=== PATIENT | male | born 2000 | race African-American/Black ===

== ENCOUNTER 2020-01-08 12:55 | Emergency (ER) | payer MEDICAID, OTHER ==
[~2020-01-08] VITALS: Ht 172.7 cm; Wt 68.0 kg
[2020-01-08] MEDS ORDERED: BACITRACIN ZINC OINT UDPKT TOP ONE (15:30)
[2020-01-08] MEDS ORDERED: TETANUS, DIPHTHERIA, PERTUSSIS VAC/PF 0.5ML (>7YR OLD) IM ONE (15:30)
[2020-01-08] MEDS ORDERED: AMOXICILLIN/POTASSIUM CLAVULANATE 875/125MG TAB PO ONE (15:30)
[2020-01-08] MEDS ORDERED: LIDOCAINE 1%/EPI 1:100,000 10 ML VIAL IJ ONE (15:30)
[2020-01-08] MEDS ORDERED: IBUPROFEN 600MG TABLET PO ONE (15:30)
[2020-01-08 15:56] VITALS: BP 152/94
[2020-01-08] MEDS ORDERED: LIDOCAINE HCL/EPINEPHRINE 1%-EPI 1:100,000 20 ML VIAL INFIL NR (16:00)
== END 2020-01-08 16:02 | disposition home or self-care (01) ==
LOC: ER 12:55
DX: S71.151A Open bite, right thigh, initial encounter (principal); W54.0XXA Bitten by dog, initial encounter; Y93.89 Activity, other specified; Y92.89 Other specified places as the place of occurrence of the external cause; Y99.8 Other external cause status; F12.10 Cannabis abuse, uncomplicated; J45.909 Unspecified asthma, uncomplicated
CPT/HCPCS: 90715; 99283; J3490

== ENCOUNTER 2020-09-14 22:56 | Emergency (ER) | payer SELFPAY ==
[~2020-09-14] VITALS: Ht 152.4 cm; Wt 64.0 kg
[2020-09-14] MEDS ORDERED: MORPHINE SULFATE 4 MG/ML CPJ (NOT FOR IM USE) IV STA (23:03)
[2020-09-14] MEDS ORDERED: ONDANSETRON HCL 4MG/2ML INJ IV STA (23:03)
[2020-09-14] MEDS ORDERED: SODIUM CHLORIDE 0.9% 1,000 ML IV ONE (23:15)
[2020-09-14] MEDS ORDERED: TETANUS, DIPHTHERIA, PERTUSSIS VAC/PF 0.5ML (>7YR OLD) IM ONE (23:15)
[2020-09-14 23:29] LABS: BASOPHILS % 0.5 % (0.0-2.0); EOSINOPHILS % 0.3 % (0.0-5.0); HEMATOCRIT. 46.1 % (42.0-52.0); HEMOGLOBIN. 15.2 g/dL (14.0-18.0); LYMPHOCYTES % 46.7 % (20.0-50.0); MEAN CORPUSCULAR HEMOGLOBIN 26.7 pg (28.0-32.0); MEAN CORPUSCULAR VOLUME 81.3 fL (80.0-94.0); MONOCYTES % 11.6 % (2.0-8.0); NEUTROPHILS % 40.9 % (40.0-76.0); PLATELET 264 x1000/uL (130-400); RED BLOOD CELL COUNT 5.67 mill/uL (4.7-6.1); RED CELL DISTRIBUTION WIDTH 15.7 % (11.6-14.6)
[2020-09-14 23:33] LABS: CHLORIDE 102 mEq/L (98-107)
[2020-09-14 23:40] LABS: INR 1.2; PARTIAL THROMBOPLASTIN TIME 28.8 sec (23.4-31.0); PROTHROMBIN TIME 12.3 sec (9.6-11.0)
[2020-09-15] MEDS ORDERED: IOHEXOL-350 100 ML BOTTLE ONE (00:36)
[2020-09-15 01:20] LABS: CLARITY URINE CLEAR (CLEAR); COLOR URINE YELLOW (YELLOW); KETONES URINE NEGATIVE (NEGATIVE); LEUKOCYTE ESTERASE URINE NEGATIVE (NEGATIVE); NITRITE URINE NEGATIVE (NEGATIVE); OCCULT BLOOD URINE NEGATIVE (NEGATIVE); PROTEIN URINE NEGATIVE (NEGATIVE); SPECIFIC GRAVITY URINE 1.041 (1.005-1.030); UROBILINOGEN URINE 0.2 E.U./dL (0.2-1.0)
[2020-09-15 03:15] VITALS: BP 119/73
== END 2020-09-15 04:47 | disposition home or self-care (01) ==
LOC: ER 22:56
DX: S71.131A Puncture wound without foreign body, right thigh, initial encounter (principal); J45.909 Unspecified asthma, uncomplicated; X93.XXXA Assault by handgun discharge, initial encounter; Y93.89 Activity, other specified; Y92.488 Other paved roadways as the place of occurrence of the external cause
CPT/HCPCS: 36415; 71045; 71260; 72170; 73706; 74177; 80053; 81003; 83690; 85025; 85610; 85730; 86850; 86900; 86901; 90471; 90715; 93005; 96361; 96374; 96375; 99285; J2270; J2405; J7030; Q9967

== ENCOUNTER 2021-04-02 19:24 | Emergency (ER) | payer MEDICAID ==
[~2021-04-02] VITALS: Ht 167.6 cm; Wt 64.0 kg
[2021-04-02 19:31] VITALS: BP 139/74
[2021-04-02] MEDS ORDERED: MUPI22OI2 TP (20:42)
== END 2021-04-02 21:11 | disposition home or self-care (01) ==
LOC: ER 19:24
DX: L01.00 Impetigo, unspecified (principal); F12.10 Cannabis abuse, uncomplicated
CPT/HCPCS: 99281

== ENCOUNTER 2024-05-07 01:31 | Emergency (ER) | payer MEDICAID ==
[~2024-05-07] VITALS: Ht 177.8 cm; Wt 80.0 kg
[~2024-05-07 01:31] MED LIST: MUPI22OI2 TP
[2024-05-07 01:33] VITALS: O2SAT 99
[2024-05-07] MEDS: IBUPROFEN 600MG TABLET PO ONE (02:49)
[2024-05-07] MEDS ORDERED: ACET-2708 MT (03:08)
[2024-05-07 03:21] VITALS: BP 116/74; PULSE 94; RESP 16; O2SAT 98
== END 2024-05-07 03:24 | disposition home or self-care (01) ==
LOC: ER 01:31
DX: M25.512 Pain in left shoulder (principal); M25.552 Pain in left hip; M25.562 Pain in left knee; F12.90 Cannabis use, unspecified, uncomplicated
CPT/HCPCS: 73030; 73502; 73560; 99284